=== PATIENT | female | born 1990 | race American Indian/Alaskan Native ===

== ENCOUNTER 2017-01-21 00:04 | Emergency (ER) | payer MEDICAID, OTHER ==
[2017-01-21 00:11] VITALS: BP 111/72
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
[2017-01-21 01:03] LABS: CHLORIDE,CL 104 mmol/L (101-111); SODIUM,NA 139 mmol/L (135-145)
[2017-01-21] MEDS ORDERED: Clindamycin HCl 150 MG Cap PO ONE (01:34)
== END 2017-01-21 01:41 | disposition home or self-care (01) ==
LOC: DL.ED 00:04
DX: N30.01 Acute cystitis with hematuria (principal); N93.8 Other specified abnormal uterine and vaginal bleeding; L03.031 Cellulitis of right toe; F17.210 Nicotine dependence, cigarettes, uncomplicated
CPT/HCPCS: 36415; 80053; 80305; 81001; 81025; 85025; 86788; 99284; A9270

== ENCOUNTER 2019-03-05 14:05 | Emergency (ER) | payer MEDICAID, OTHER ==
[2019-03-05] MEDS ORDERED: Ondansetron 4 MG/2 ML SDV IV ONE ×2 (14:06→14:43)
[2019-03-05] MEDS ORDERED: Ketorolac 30 MG/ML SDV IVPUSH ONE ×2 (14:06→15:12)
[2019-03-05] MEDS ORDERED: Cyclobenzaprine 10 MG Tab PO ONE ×2 (14:06→15:12)
[2019-03-05] MEDS ORDERED: Lactated Ringers 1,000 ML IV ONE ×2 (14:06→14:13)
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
[2019-03-05] MEDS ORDERED: Sodium Chloride 0.9% 10 ML Syringe FLUSH PRN (14:08)
[2019-03-05] MEDS ORDERED: Iopamidol 612 MG/ML 100 ML Bottle IVPUSH ONE (14:16)
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
[2019-03-05 14:43] LABS: ANION GAP 14.2; CHLORIDE,CL 107 mmol/L (101-111); SODIUM,NA 140 mmol/L (135-145)
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
== END 2019-03-05 15:45 | disposition home or self-care (01) ==
LOC: DL.ED 14:05
DX: M54.5 Low back pain (principal); M54.2 Cervicalgia; M62.830 Muscle spasm of back; F17.210 Nicotine dependence, cigarettes, uncomplicated; V49.50XA Passenger injured in collision with unspecified motor vehicles in traffic accident, initial encounter
CPT/HCPCS: 36415; 70450; 71260; 72125; 74177; 80053; 80305; 80320; 81001; 81025; 82150; 82962; 83690; 85025; 85610; 85730; 86850; 86900; 86901; 93005; 96365; 96375; 99285; A9270; G0390; J1885; J2405; J7120; Q9967; G0480

== ENCOUNTER 2021-11-13 18:08 | Emergency (ER) | payer MEDICAID, OTHER ==
[2021-11-13 21:10] LABS: CORONAVIRUS COVID-19 NAA NEGATIVE (NEGATIVE)
[2021-11-13] MEDS ORDERED: Sodium Chloride 0.9% 1,000 ML IV ONE (21:21)
[2021-11-13] MEDS ORDERED: Ondansetron 4 MG/2 ML SDV IVPUSH ONE (21:21)
[2021-11-13] MEDS ORDERED: Sodium Chloride 0.9% 10 ML Syringe FLUSH PRN (21:21)
[2021-11-13] MEDS ORDERED: cefTRIAXone 1 GM in Sodium Chloride 0.9% 50 ML IV ONE (21:21)
[2021-11-13 22:09] LABS: ANION GAP 19.3 mEq/L (7-13); CHLORIDE,CL 104 mmol/L (98-107); SODIUM,NA 140 mmol/L (136-145)
[2021-11-14 00:44] VITALS: BP 112/78; PULSE 78
== END 2021-11-13 23:23 | disposition home or self-care (01) ==
LOC: DL.ED 18:08
DX: J02.9 Acute pharyngitis, unspecified (principal); Z72.0 Tobacco use; Z20.822 Contact with and (suspected) exposure to COVID-19
CPT/HCPCS: 0240U; 36415; 80053; 85025; 87081; 87430; 96365; 96375; 99283; 99283-25; J0696; J2405; J3490; J7030

== ENCOUNTER 2024-05-15 21:39 | Emergency (ER) | payer BC, OTHER ==
[2024-05-15] MEDS: Diphtheria,Pertussis(Acell),Tetanus Vaccine 0.5 ML Syringe IM ONE (22:48)
[2024-05-15 23:23] VITALS: BP 122/74; PULSE 64
== END 2024-05-15 23:23 | disposition home or self-care (01) ==
LOC: DL.ED 21:39
DX: S61.411A Laceration without foreign body of right hand, initial encounter (principal); Z23 Encounter for immunization; W45.8XXA Other foreign body or object entering through skin, initial encounter
CPT/HCPCS: 12001; 73130-RT; 90471; 90715; 99283-25